=== PATIENT | female | born 1990 | race Two or more races ===

== ENCOUNTER 2023-07-01 12:09 | Emergency (ER) | payer OTHER ==
[~2023-07-01] VITALS: Ht 162.6 cm; Wt 46.3 kg
[2023-07-01 15:34] LABS: PH,URINE 5.5 (5.0-8.0); URINE APPEARANCE Clear; URINE BILIRRUBIN Negative (NEGATIVE); URINE BLOOD Small; URINE COLOR Yellow; URINE GLUCOSE Negative (NEGATIVE); URINE LEUKOCYTE Small; URINE NITRATE Negative; URINE PROTEIN Negative (NEGATIVE); URINE UROBILINOGEN 0.2 E.U./dl
[2023-07-01 15:37] LABS: URINE BACTERIA 309.9 uL (0.0-1933); URINE EPITHELIAL CELLS 20.5 uL (0.0-38.8); URINE RBC 19.4 uL (0.0-20.8); URINE WBC 179.9 uL (0.0-23.2)
[2023-07-01 15:39] LABS: HEMATOCRIT 26.6 % (36.0-45.00); MEAN CELL VOLUME 82.6 fL (80.00-100.00); PLATELET COUNT 367 K/uL (150-450); RED BLOOD COUNT 3.22 M/uL (4.00-6.00); RED CELL DISTRIBUTION WIDTH 16.2 % (11.5-14.5)
[2023-07-01 15:45] LABS: HEMOGLOBIN 8.5 g/dL (12.0-15.00); MEAN CORPUSCULAR HEMOGLOBIN 26.3 pg (27.00-32.0)
[2023-07-01 15:55] LABS: CALCIUM 8.7 mg/dL (8.5-10.1); CREATININE SERUM 0.5 mg/dL (0.55-1.02); GFR 141.23; POTASSIUM 3.45 mEq/L (3.5-5.1)
[2023-07-01] MEDS ORDERED: IRON325 MG PO (17:01)
[2023-07-01] MEDS ORDERED: DUI500 PO (17:01)
== END 2023-07-01 17:17 | disposition home or self-care (01) ==
LOC: ER 12:09
PROVIDERS: Nurse Practitioner Family
DX: N39.0 Urinary tract infection, site not specified (principal); D64.9 Anemia, unspecified; Z20.822 Contact with and (suspected) exposure to COVID-19; Z88.6 Allergy status to analgesic agent

== ENCOUNTER 2023-07-15 17:27 | Emergency (ER) | payer OTHER ==
[~2023-07-15] VITALS: Ht 157.5 cm; Wt 44.9 kg
[~2023-07-15 17:27] MED LIST: DUI500 PO; IRON325 MG PO
[2023-07-15 19:17] LABS: HEMATOCRIT 25.9 % (36.0-45.00); MEAN CELL VOLUME 80.2 fL (80.00-100.00); MEAN CORPUSCULAR HGB CONC 33.1 g/dl (32.0-36.0); PLATELET COUNT 460 K/uL (150-450); RED BLOOD COUNT 3.22 M/uL (4.00-6.00); RED CELL DISTRIBUTION WIDTH 17.1 % (11.5-14.5)
[2023-07-15 19:22] LABS: HEMOGLOBIN 8.6 g/dL (12.0-15.00); MEAN CORPUSCULAR HEMOGLOBIN 26.7 pg (27.00-32.0)
[2023-07-15 19:34] LABS: URINE APPEARANCE Turbid; URINE BILIRRUBIN Negative (NEGATIVE); URINE BLOOD Large; URINE COLOR Yellow; URINE GLUCOSE Negative (NEGATIVE); URINE LEUKOCYTE Large; URINE NITRATE Negative; URINE PROTEIN 30 (NEGATIVE); URINE UROBILINOGEN 0.2 E.U./dl
[2023-07-15 19:35] LABS: URINE EPITHELIAL CELLS 21.3 uL (0.0-38.8); URINE RBC 645.9 uL (0.0-20.8)
[2023-07-15 19:42] LABS: ALBUMIN 2.2 gm/dL (3.4-5.0); BILIRUBIN TOTAL 0.19 mg/dL (0.3-1.2); CREATININE SERUM 0.58 mg/dL (0.55-1.02); GLOBULINA 6.6 G/DL (2.4-3.5); POTASSIUM 3.93 mEq/L (3.5-5.1); TOTAL PROTEIN 8.8 gm/dL (6.4-8.2)
[2023-07-15 19:43] LABS: URINE WBC > 5548.3 uL (0.0-23.2)
== END 2023-07-16 03:19 | disposition home or self-care (01) ==
LOC: ER 17:27
PROVIDERS: Nurse Practitioner Family
DX: N39.0 Urinary tract infection, site not specified (principal); D64.9 Anemia, unspecified; N83.202 Unspecified ovarian cyst, left side; Z88.6 Allergy status to analgesic agent